=== PATIENT | male | born 1960 | race Two or more races ===

== ENCOUNTER 2024-07-15 09:05 | Day surgery (SDC) | payer BC, SELFPAY ==
[2024-07-15] VITALS (15 sets, daily range): BP systolic 131–153; BP diastolic 84–98; PULSE 58–93; RESP 12–19; TEMP 36.2–36.7; O2SAT 96–100; BMI 29.8
[2024-07-15] MEDS: DiphenhydrAMINE INJ 50 MG/ML VIAL 25 MG IV (10:20)
[2024-07-15] MEDS: RINGERS LACTATED 1000 ML 1,000 ML 60 ML IV (10:20)
[2024-07-15] MEDS: fentaNYL CIT INJ 50 mCg/ML AMP 2ML (ASD USE ONLY) IV ×2 (10:20→10:32)
[2024-07-15] MEDS: MIDAZOLAM INJ 1 MG/ML VIAL 2 ML (ASD USE ONLY) 2 MG IV ×2 (10:20→10:24)
--- NOTE | 2024-07-15 11:03 | SUR.PHASEII ---
patient into recovery with no acute distress noted, v/s stable no complaints of pain or nausea at this time, patient repositions self for comfort. report received from Bailey REA.
== END 2024-07-15 11:40 | disposition home or self-care (01) ==
PROVIDERS: PCP Internal Medicine; Referring Provider Specialist; Visit Provider Specialist
PROC: 0DBE8ZX Excision of Large Intestine, Via Natural or Artificial Opening Endoscopic, Diagnostic (ICD-10-PCS; CPT 45380; principal; 2024-07-15 09:30)
DX: Z12.11 Encounter for screening for malignant neoplasm of colon (principal)
CPT/HCPCS: 45378; J1200; J2250; J3010; J7120

== ENCOUNTER → 2024-11-05 | Outpatient (CLI) | payer BC, SELFPAY ==
--- NOTE | 2024-11-05 15:30 | XR_ITS ---
Examination: CT abdomen with intravenous contrast CT pelvis with intravenous contrast 2-D coronal reconstructions 2-D sagittal reconstructions Date and time of exam:November 05, 2024 1535 hours INDICATIONS: Abdominal pain several years, history appendicitis 2019. CTDI: vol (mGy) 21.5 DLP: (mGycm) 885 Technique: Multiple axial sections of the abdomen and pelvis have been obtained. 64 slice high-resolution scanner used. 3 mm axial sections have been obtained, post intravenous injection 60 cc [id number] 2-D sagittal, coronal reconstructions obtained. Low dose protocols were performed. One or more of the following dose reduction techniques were used; automated exposure control, adjustment of the mA and/or KV according to patient size, use of iterative reconstruction technique. Findings: No focal liver or splenic lesions No gallstones No pancreatic or adrenal mass. No renal or ureteral calculi, no hydronephrosis Aorta normal size. 15 mm fat-containing umbilical hernia. Appendix not visualized No bowel obstruction No diverticulitis Mild prostatomegaly Urinary bladder wall thickening up to 9 mm Lumbar fusion L5-S1 IMPRESSION: No acute process in the abdomen or pelvis
== END | disposition home or self-care (01) ==
LOC: CCTX 14:54
PROVIDERS: Referring Provider Nurse Practitioner Family; Visit Provider Nurse Practitioner Family
DX: R10.11 Right upper quadrant pain (principal)
CPT/HCPCS: 74177; A4649; Q9967